=== PATIENT | female | born 1985 | race Caucasian/White ===

== ENCOUNTER 2019-10-19 22:47 | Day surgery (SDC) | payer OTHER ==
[2019-10-19 23:22] VITALS: BMI 32.1
[2019-10-19] MEDS ORDERED: hydrALAZINE 20 MG/ML VIAL SLOW IVP PRN (23:56)
--- NOTE | 2019-10-20 00:01 | PDOC.FPROB ---
Addendum entered and electronically signed by Eulalio Stewart MD 10/20/19 05:34 : Pt was observed on L&D unit for the last 6 hours. Pt has remained /-2. She is still having ctx but still likely not adequate enough to make change. Ctx pain as not increased in intensity either. Discusssed return precautions. Discussed ROM and increasing intensity in pain. Advised to drink plenty of fluids. Original Note: FMR OB H&P: HPI - History of Present Illness Chief Complaint: CTX Indentification: 33 yo @ 36.3 wks History of Present Illness: Pt comes in w/ c/c of ctx. Ctx began about a few hours ago. Reports have been 3- 5 minutes apart. Reports some are stronger than others. Reports FM. Denies any vaginal bleeding, discharge, itching or irritation. Denies any urinary sx's. Denies any burning or increase in frequency. Denies any LOF. Primary Care Physician: Carla FMR OB H&P: Current - Care : 6 Para: 1132 Gestational age: 36.3 Due date: 11/13/2019 - OB Labs Blood type: A RH: positive Antibody Screen: negative HIV: negative RPR: negative HepBsAg: negative Rubella: immune Quad screen: negative Gonorrhea: negative Chlamydia: negative Pap Smear: 03/19/2019- LGSIL w/ HR, 18 HPV 1 hour gtt: 137 GBS: negative H&H: 14.2/41.6 Platelets: 187 Additional labs: TSH 2.06 - Additional Ultrasound Additional: Pt reports normal ultrasounds. 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 No history of STD's. - Surgical History Sx History: x1 Appendectomy Removal of Ectopic - Social History Social History: Denies any smoking, drinking or illicit drug use. - Family History Family History: Reports history of lung cancer and strokes. FMR OB H&P: Medications - Current Home Medications: Medication Instructions Recorded Confirmed Type Pnv No.95/Ferrous Fum/Folic AC 1 tab PO DAILY 10/19/19 10/19/19 History [ [place]] Allergies/Adverse Reactions: Allergies Allergy/AdvReac Type Severity Reaction Status Date / Time No Known Allergies Allergy Unverified 10/19/19 23:15 FMR OB H&P: ROS - Review of Systems General: denies: fever/chills, weight/appetite/sleep changes, fatigue Eyes: denies: eye pain, vision changes ENT: denies: nasal congestion, rhinorrhea, sore throat Cardiovascular: denies: chest pain, edema Respiratory: denies: cough, shortness of breath Gastrointestinal: denies: abdominal pain, indigestion, cramping, nausea, vomiting, diarrhea, constipation Genitourinary (Female): reports: contractions. denies: incontinence, hematuria , polyuria, hesitancy, vaginal discharge, vaginal pain, vaginal bleeding, vaginal pressure Musculoskeletal: denies: pain, stiffness, tenderness, redness, swelling Neurologic: denies: numbness, weakness, loss of counsciousness, headache Integumentary: denies: itching, rash, lesions Hematologic/Lymphatic: denies: prolonged or excessive bleeding Psychological: denies: depression, anxiety FMR OB H&P: Vital Signs - Maternal Vital signs: BP 126/79, Pulse 83, RR 18 - Heart Tones Baseline: 140 Variability: moderate Acceleration: present Deceleration: absent Category: category 1 [place] contractions every: 3-5 minutes FMR OB H&P: Physical Exam - Physical Exam General: NAD, awake, alert and oriented HEENT: normocephalic and atraumatic, grossly normal vision, grossly normal hearing, normal nasal mucosa Neck: supple, FROM Heart: RRR, normal S1/S2, no murmurs/rubs/gallops, pulses present, no edema General: CTAB, no respiratory distress, good air movement, no rales/rhonchi, no wheezing, no retractions Abdomen: soft, gravid, non-tender, bowel sound present, no masses, no hernias Musculoskeletal: normal gait and station, pulses present, FROM in all four extremities Neurological: sensation to pain,touch and proprioception grossly normal Skin: no rash, good tugor Lymphatic: no unusual bruising or bleeding Psychiatric: intact recent and remote memory, good judgement and insight, normal mood and affect - Pelvic Exam Vulva: normal hair distribution, no discharge SVE: /.2 FMR OB H&P: A/P - Problem List (1) Status: Acute Qualifiers: Weeks of gestation: 36 weeks Qualified Code(s): Z3A.36 - 36 weeks gestation of Disposition: 33 yo @ 36.5 weeks presents with Ctx -SVE /-2. No LOF fluid reported or noted. -Cat 1 strip. FHR 140. -Will monitor and reassess in a few hours. Discussion: Date/Time: 10/19/19 6636 This H&P was discussed with [] and [] who agree with the above documentation and plan. Addendum - Attending - Attending Attestation Date/Time: 10/20/19 5160 I personally evaluated the patient and discussed the management with Dr. Stewart. I agree with the History, Examination, Assessment and Plan documented above.
[2019-10-20] MEDS ORDERED: FLU VACC QS2019-20(6MOS UP)/PF 60 MCG/0.5 ML SYRINGE IM ONE (21:00)
== END 2019-10-20 05:30 | disposition home or self-care (01) ==
LOC: L&D/OP 22:47
PROVIDERS: ATTEND Obstetrics & Gynecology
DX: O47.03 False labor before 37 completed weeks of gestation, third trimester (principal); Z3A.36 36 weeks gestation of pregnancy

== ENCOUNTER 2019-11-05 18:38 | Day surgery (SDC) | payer OTHER ==
[2019-11-05 19:32] VITALS: BMI 32.3
[2019-11-05] MEDS ORDERED: FLU VACC QS2019-20(6MOS UP)/PF 60 MCG/0.5 ML SYRINGE IM ONE (19:45)
[2019-11-05] MEDS ORDERED: hydrALAZINE 20 MG/ML VIAL SLOW IVP PRN (20:23)
--- NOTE | 2019-11-05 20:26 | PDOC.LDHP ---
Labor and Delivery H&P Chief complaint: contractions HPI: 34 y/o at 38w6d, patient of Dr. Aguirre, presents with ctx. Patient was seen in clinic today and 2cm, and had her membranes stripped. Has had some spotting but no LOF or decreased FM. ROS neg for HEENT, CV, pulm, GI, , neuro, psych, skin, musculoskeletal, or constitutional symptoms other than mentioned above. OB History Details: 1 1 LTCS for breech Past Medical History: None Current medications: pre- vitamins Previous surgical history: none Allergies/Adverse Reactions: Allergies Allergy/AdvReac Type Severity Reaction Status Date / Time No Known Allergies Allergy Verified 11/05/19 19:27 Social history: none - Physical Exam Vital signs reviewed and normal: yes General: NAD, resting Lungs: nonlabored breathing Abdomen: gravid Extremeties: no edema FHT: category 1 (110s, mod variability, + accels, no decels) [place] contractions every: 4-6 mins - Vaginal Exam cm dilated: 2 (unchanged after 4 hours) Effacement: 50% Station: -2 - Assessment 34 y/o at 38w6d with no e/o active labor at this time. Bedside GORDO performed and normal. status reassuring with reactive NST. - Plan -: D/c home with precautions. Advised to keep all appointments. Scheduled for induction .
== END 2019-11-05 23:58 | disposition home or self-care (01) ==
LOC: L&D/OP 18:38
PROVIDERS: ATTEND Obstetrics & Gynecology
DX: O47.1 False labor at or after 37 completed weeks of gestation (principal); O26.853 Spotting complicating pregnancy, third trimester; O34.211 Maternal care for low transverse scar from previous cesarean delivery; Z3A.38 38 weeks gestation of pregnancy
CPT/HCPCS: 99283

== ENCOUNTER 2019-11-07 05:30 | Inpatient (IN) | payer OTHER ==
--- NOTE | 2019-11-07 00:26 | PDOC.LDHP ---
Labor and Delivery H&P HPI: 34 y/o at 39 and 1/7 for TOLAC. C/Sx1. GBS neg. LGSIL pap. Current gestational age (weeks): 39 Due date: 11/13/19 Grav: 6 Para: 2 Abnormal US findings: No Past Medical History: HPV. LGSIL PAP, ERIK 1 COLPO Current medications: pre- vitamins Previous surgical history: low tranverse CS Allergies/Adverse Reactions: Allergies Allergy/AdvReac Type Severity Reaction Status Date / Time No Known Allergies Allergy Verified 11/05/19 19:27 Social history: none - Physical Exam Vital signs reviewed and normal: yes General: NAD, resting Heart: RRR Lungs: CTAB Abdomen: gravid Extremeties: no edema FHT: category 1 - Assessment L&D Assessment: elective induction at term - Plan Plan: admit to L&D, other (TOLAC desired.)
[~2019-11-07 05:30] MED LIST: Acetaminophen 500 MG TAB PO PRN; Butorphanol Tartrate 1 MG/ML VIAL SLOW IVP PRN; Carboprost 250 MCG/ML AMP IM PRN; Diphenoxylate HCl/Atropine Tablet PO PRN; Docusate 100 MG CAP PO PRN; HYDROcodone/Acetaminophen 5/325 mg Tablet PO PRN; Ibuprofen 800 MG TAB PO PRN; Lidocaine 1% (PF) 30 ML VIAL SC PRN; Methylergonovine 0.2 MG/ML VIAL IM PRN; Misoprostol 200 MCG TAB PR PRN; NS / Oxytocin 40 units/1000ml 1,000 ML IV PRN; NS w/ Oxytocin 10 units 500 ML IV SCH; Ondansetron PF 4 MG/2 ML Vial IVP PRN; Promethazine HCl 25 MG/ML VIAL IM PRN; Zolpidem Tartrate 5 MG TAB PO PRN; hydrALAZINE 20 MG/ML VIAL SLOW IVP PRN
[2019-11-07 06:14] VITALS: BMI 32.3
[2019-11-07 06:55] LABS: Hemoglobin 14.6 g/dL (12.0-16.0); Mean Corpuscular HGB CONC 35.1 g/dL (32.0-36.0); Mean Corpuscular Hemoglobin 33.3 pg (27.0-31.0); Mean Corpuscular Volume 94.7 fL (78.0-98.0); Mean Platelet Volume 11.2 fL (7.4-10.4); Platelet Count 119 thou/uL (130-400); RBC Distribution Width 11.4 % (11.5-14.5); Red Blood Cell (RBC) Count 4.38 mill/uL (4.20-5.40); White Blood Cell (WBC) Count 9.6 thou/uL (4.8-10.8)
[2019-11-07] MEDS ORDERED: FLU VACC QS2019-20(6MOS UP)/PF 60 MCG/0.5 ML SYRINGE IM ONE (07:00)
[2019-11-07] MEDS: Lactated Ringer's 1,000 ML IV SCH ×3 (07:02→11:47)
[2019-11-07 07:37] LABS: Hep B Surf Ag Non-Reactive S/CO (NonReactive); Syphilis Antibody Nonreactive (Nonreactive); Syphilis Antibody Index 0.06 S/CO (<1.00 Non-Reactive)
[2019-11-07] MEDS ORDERED: Bupivacaine/Epinephrine 0.25% 30 ML VIAL ONE (09:32)
[2019-11-07] MEDS ORDERED: Fentanyl 4 mcg/Bup 0.1% Cadd 100 ML ONE (10:34)
--- NOTE | 2019-11-07 14:03 | PRG ---
DATE OF SERVICE: 11/07/2019 AROM note. TIME: 1350 hours. In brief, I was requested into the room by Dr. Aguirre, called josy CAVAZOS, for artificial rupture of membranes. The patient is a multigravida, undergoing a TOLAC at 39 weeks. AROM was discussed with the patient. I performed an AROM after noting the cervix to be 2 cm dilated, 50% effaced, and -2 station. AROM was performed without difficulty and we found clear copious fluid initially with some blood mixed within it. Vernix was seen in the fluid. IUPC was placed as well. scalp electrode was not placed as we were picking up by the external monitor. No complications were noted with this procedure. All questions were answered. Epidural in place. Job ID: [id number] MTDD
[2019-11-07] MEDS ORDERED: Lidocaine 1% (PF) 30 ML VIAL ONE (17:05)
[2019-11-07] MEDS ORDERED: NS / Oxytocin 40 units/1000ml 1,000 ML ONE (17:06)
[2019-11-07] MEDS ORDERED: Preparation H Ointment 28 GM TUBE PR PRN (19:24)
[2019-11-07] MEDS ORDERED: diphenhydrAMINE 25 MG CAP PO PRN (19:24)
[2019-11-07] MEDS ORDERED: Zolpidem Tartrate 5 MG TAB PO PRN (19:24)
[2019-11-07] MEDS ORDERED: Varicella virus, LIVE 0.5 ML VIAL SC ONE (19:24)
[2019-11-07] MEDS ORDERED: Promethazine HCl 25 MG/ML VIAL IM PRN (19:24)
[2019-11-07] MEDS ORDERED: Methylergonovine 0.2 MG/ML VIAL IM PRN (19:24)
[2019-11-07] MEDS ORDERED: Measles/Mumps/Rubella 10 MCG/0.5 ML VIAL SC ONE (19:24)
[2019-11-07] MEDS ORDERED: HYDROcodone/Acetaminophen 5/325 mg Tablet PO PRN (19:24)
[2019-11-07] MEDS ORDERED: Bisacodyl 10 MG SUPP PR PRN (19:24)
[2019-11-07] MEDS ORDERED: Milk Of Magnesia 30 ML UDCUP PO PRN (19:24)
[2019-11-07] MEDS ORDERED: Lanolin Ointment 7 GM TUBE TOP PRN (19:24)
[2019-11-07] MEDS ORDERED: Ondansetron PF 4 MG/2 ML Vial IVP PRN (19:24)
[2019-11-07] MEDS ORDERED: Adacel (T-DAP) 0.5 ML SYRINGE IM ONE (19:24)
[2019-11-07] MEDS ORDERED: hydrALAZINE 20 MG/ML VIAL SLOW IVP PRN (19:24)
[2019-11-07] MEDS ORDERED: NS / Oxytocin 40 units/1000ml 1,000 ML IV SCH (19:24)
[2019-11-07] MEDS ORDERED: Benzocaine-Menthol 82.5 ML CAN TOP PRN (19:24)
[2019-11-07] MEDS: Docusate Calcium (SURFAK) 240 MG CAP PO SCH (21:01)
[2019-11-07] MEDS: Ibuprofen 800 MG TAB PO SCH (21:38)
[2019-11-07] MEDS: HYDROcodone/Acetaminophen 5/325 mg Tablet PO PRN (23:06)
[2019-11-08] MEDS: Lactated Ringer's 1,000 ML IV SCH (01:53)
[2019-11-08] MEDS: Ibuprofen 800 MG TAB PO SCH ×2 (05:59→14:44)
[2019-11-08 06:16] LABS: Hemoglobin 12.8 g/dL (12.0-16.0); Mean Corpuscular HGB CONC 34.3 g/dL (32.0-36.0); Mean Corpuscular Hemoglobin 32.7 pg (27.0-31.0); Mean Corpuscular Volume 95.2 fL (78.0-98.0); Mean Platelet Volume 11.2 fL (7.4-10.4); Platelet Count 102 thou/uL (130-400); RBC Distribution Width 11.3 % (11.5-14.5); Red Blood Cell (RBC) Count 3.93 mill/uL (4.20-5.40); White Blood Cell (WBC) Count 14.4 thou/uL (4.8-10.8)
[2019-11-08] MEDS ORDERED: Ferrous Sulfate 325 MG TAB PO SCH (08:00)
[2019-11-08] MEDS ORDERED: Prenatal Vitamin 1 TAB PO SCH (09:00)
[2019-11-08] MEDS: Docusate Calcium (SURFAK) 240 MG CAP PO SCH (09:29)
[2019-11-08] MEDS: HYDROcodone/Acetaminophen 5/325 mg Tablet PO PRN (11:49)
--- NOTE | 2019-11-08 12:36 | PDOC.PP ---
Post Progress Note Post Day #: 1 PO intake tolerated: yes Flatus: yes Ambulation: yes Vital Signs (12 hours) Temp Pulse Resp BP Pulse Ox 11/08/19 11:25 98.4 F 79 20 137/71 11/08/19 07:46 98.4 F 69 20 107/69 99 11/08/19 03:23 97.8 F 65 14 117/79 Weight Weight 171 lb - Physical Examination General: NAD Cardiovascular: no m/r/g, RRR Respiratory: clear to auscultation bilaterally, non-labored breathing Abdominal: + bowel sounds, lochia, no distention, appropriately TTP Extremities: negative homans (B) Neurological: no gross focal deficits Psychiatric: A&Ox3, normal affect Result Diagrams: 11/08/19 05:30 Additional Labs: Post Labs Blood Type A POSITIVE 11/07/19 07:27 Hep Bs Antigen Non-Reactive S/CO (NonReactive) 11/07/19 06:15
[2019-11-08 17:48] VITALS: BP 129/82; TEMP 98.6
--- NOTE | 2019-11-09 01:04 | DN ---
DATE OF PROCEDURE: 11/07/2019 TIME: At 1638 central standard time. PREOPERATIVE DIAGNOSIS: Intrauterine at 39 weeks and 2 days with a trial of labor after section. POSTOPERATIVE DIAGNOSIS: Intrauterine at 39 weeks and 2 days with a trial of labor after section. PROCEDURE: Vaginal after section with intact perineum and small right periurethral laceration. FINDINGS: Viable male weighing 3366 g or 7 pounds 7 ounces. Apgars 9 and 9. QUANTITATIVE BLOOD LOSS: Here was 50. COMPLICATIONS: None. PROCEDURE IN DETAIL: The patient presented to [facility] where she was admitted to the labor and delivery service. The patient underwent a normal and uneventful labor with normal cervical dilatation until she was found to be completely dilated. She was then allowed to push and was able to bring the baby down and delivered the baby in a vertex presentation without difficulties. Once the head delivered in occiput anterior position, the shoulders followed spontaneously along with the rest of the baby's body. Once out the baby's mouth and nose were bulb suctioned. The cord was clamped and cut and baby was handed to waiting attendants. Cord blood was collected. Gentle fundal massage was performed and the placenta delivered intact without problems. Hemostasis was assured. Quantitative blood loss was calculated. Inspection of the cervix, vaginal vault, and perineum did not reveal any lacerations needing suturing. Once again, hemostasis was within normal limits and the patient was allowed to recover in the labor and delivery room. Baby went to nursery. Job ID: [id number]
[2019-11-09] MEDS ORDERED: FLU VACC QS2019-20(6MOS UP)/PF 60 MCG/0.5 ML SYRINGE IM ONE (09:00)
== END 2019-11-08 18:45 | disposition home or self-care (01) | DRG 807 ==
LOC: EDSTATUS 05:30 → L&D 05:37 → UNDOADMIN 05:37 → L&D 06:00 → 3SW 21:25
PROVIDERS: ADMIT Obstetrics & Gynecology; ATTEND Obstetrics & Gynecology
PROC: 10E0XZZ Delivery of Products of Conception, External Approach (ICD-10-PCS; principal; 2019-11-07)
PROC: 10907ZC Drainage of Amniotic Fluid, Therapeutic from Products of Conception, Via Natural or Artificial Opening (ICD-10-PCS; 2019-11-07)
PROC: 6A550ZT Pheresis of Cord Blood Stem Cells, Single (ICD-10-PCS; 2019-11-07)
DX: O34.211 Maternal care for low transverse scar from previous cesarean delivery (principal); Z37.0 Single live birth; Z3A.39 39 weeks gestation of pregnancy; O71.82 Other specified trauma to perineum and vulva
CPT/HCPCS: 36415; 51702; 85027; 86780; 86850; 86900; 86901; 87340; 90471; 90686; G0008; J2001; J2405; J2590